=== PATIENT | female | born 1955 | race Caucasian/White ===

== ENCOUNTER → 2022-06-30 08:45 | Outpatient (CLI) | payer MEDICARE, OTHER, SELFPAY | PROVIDERS: PCP Nurse Practitioner Family; Visit Provider Urology | DX: N20.0 Calculus of kidney (principal) | CPT/HCPCS: 87086 ==

== ENCOUNTER → 2022-06-30 09:43 | Outpatient (CLI) | payer MEDICARE, OTHER, SELFPAY ==
--- NOTE | 2022-06-30 09:48 | DI.RAD.S_ITS ---
PROCEDURE: XR KUB INDICATIONS: Right ureteral calculus TECHNIQUE: One view of the abdomen acquired. COMPARISON: [facility], , CT KUB, 06/13/2022, 9:51. FINDINGS: Surgical changes and devices: None. Bowel: Bowel gas pattern is normal. Soft tissues: 12 mm calcification is seen in the right pelvis, which appears to correspond to a distal right ureteral calculus seen on CT from 06/13/2022. Visualized solid organ contours appear normal in size. Bones: Postsurgical changes from posterior fusion at L3 through L5. IMPRESSION: Distal right ureteral calculus does not appear significantly changed when compared to the CT from 06/13/2022. Dictated by: Boris Myrick M.D. on 06/30/2022 at 11:34 Approved by: Boris Myrick M.D. on 06/30/2022 at 11:36
== END ==
PROVIDERS: PCP Nurse Practitioner Family; Referring Provider Urology; Visit Provider Urology
DX: N20.1 Calculus of ureter (principal); R31.29 Other microscopic hematuria
CPT/HCPCS: 74018; 81002; 87077; 87086; 87186; 99214

== ENCOUNTER → 2022-07-01 10:14 | Outpatient (CLI) | payer MEDICARE, OTHER, SELFPAY ==
[2022-07-01 10:51] LABS: COVID19 -Nasal RAPID Negative (Negative)
== END ==
PROVIDERS: PCP Nurse Practitioner Family; Visit Provider Urology
DX: Z20.822 Contact with and (suspected) exposure to COVID-19 (principal)
CPT/HCPCS: 87635; C9803

== ENCOUNTER 2022-07-04 06:33 | Day surgery (SDC) | payer MEDICARE, OTHER, SELFPAY ==
[2022-06-30 11:57] VITALS: BMI 32.3
[2022-07-04] VITALS (7 sets, daily range): BP systolic 102–128; BP diastolic 54–75; PULSE 65–78; RESP 15–17; TEMP 35.9–36.6; O2SAT 95–100; BMI 32.3
--- NOTE | 2022-07-04 | DI.RAD.S_ITS ---
PROCEDURE: XR ABDOMEN 1V INDICATIONS: right stent placement TECHNIQUE: 2 nondiagnostic intraoperative fluoroscopic images of the abdomen. COMPARISON: None. FINDINGS: Nondiagnostic intraoperative fluoroscopic images of the abdomen demonstrate double-J ureteral stent placement with proximal coiled portion projecting over the right renal pelvis and distal coiled portion projecting over the right superior urinary bladder. IMPRESSION: Right double-J ureteral stent placement. Dictated by: Davidson Moser M.D. on 07/04/2022 at 11:30 Approved by: Davidson Moser M.D. on 07/04/2022 at 11:31
--- NOTE | 2022-07-04 07:34 | PM.PREOP ---
Pre-operative Note COVID-19 COVID-19 status: Negative Result date/Date tested (Pos, Neg/Pending): 07/01/22 Criteria for continued procedure: Delay expected to result in less-positive ultimate med/surg outcome and Non-surgical alternatives not available or appropriate per current SOC Interval Note History & Physical reviewed/Exam performed by Physician: Yes Changes to H&P: No
[2022-07-04] MEDS: LACTATED RINGERS 1,000 ML 42 ML IV (07:38)
[2022-07-04] MEDS: CEFAZOLIN 2 GM/100 ML PREMIX 100 ML IV (07:55)
[2022-07-04] MEDS: ACETAMINOPHEN IV 1,000 MG/100 ML VIAL 400 MG IV (08:00)
--- NOTE | 2022-07-04 08:11 | SUR.OPER ---
Lithotomy on padded OR bed, head on pillow, arms secured on padded arm boards at <90 degrees abduction. Legs secured in padded yellow fins stirrups.
[2022-07-04] MEDS: IOPAMIDOL 50 ML VIAL INJ (08:17)
--- NOTE | 2022-07-04 08:35 | PM.OP.1 ---
Procedure & Clinicians Procedure: Cystoscopy right retrograde pyelogram and right ureteral stent placement Same procedure as scheduled: Yes Indications: This is a very pleasant 67-year-old female who presented with complaint of right flank pain was found to have a very large greater than 1.5 cm stone in the distal right ureter. She presents at this time for cystoscopy retrograde and stent placement on the right side. Surgeon: Felipe Kemp Click Yes if Unassisted: Yes Anesthesia Type: General Operative Notes Findings: External genitalia normal urethra and urethral meatus normal. Ureteral orifices in normal position efflux was not observed. Bladder mucosa is normal. Had retrograde pyelogram the stone is noted in the distal 3rd of the ureter. And at retrograde pyelogram moderate ureterectasis is noted as well as hydronephrosis. With passage of the wire a thick purulent appearing material was in evidence as vigorous efflux from the ureteral orifice. A sample of this was collected and will be sent for culture. Note the patient has had no sign or symptom of systemic infectious illness. A 7 [place] by multi length stent was left in good position in the right collecting system without a string. Closure Type: not applicable Specimen(s): other (Aspirated urine for culture) Applied: other (7 [place] by multi length stent right collecting system no string) Estimated Blood Loss (mL): 0 Procedure in detail: Procedure in detail: After informed consent was obtained, the patient was identified, and brought to the operating room. Patient was placed in a supine position on the table and anesthesia was induced and maintained. After ensuring an adequate level of anesthesia the patient was transitioned to the lithotomy position. The patient was then prepped, draped, prepared for Transurethral procedure. After ensuring an adequate level of anesthesia and time-out a 21 [place] cystoscope was passed through the urethra and into the bladder. Cystoscopy was performed. An attempt was made to pass the hybrid wire up past the stone and met with significant resistance. Therefore was backed out [place] catheter was inserted and retrograde pyelogram performed. The [place] catheter was then left in place and a 0.035 glidewire was passed up into the collecting system. The [place] was then passed along the guidewire wire and up into the upper collecting system. The Glidewire was backed out the hybrid wire inserted. Again during this time he vigorous efflux of purulent material was noted from the ureteral orifice. With the hybrid wire in place the stent was passed over the wire in a coaxial fashion and positioned in the renal pelvis under fluoroscopic visualization in the bladder under direct vision. With the stent in good position the wire was removed. The cystoscope was backed out leaving the stent and string in place. It was then reinserted grasping forceps was inserted the stent was grasped with a nylon harness was removed. Fluoroscopic images were taken at the kidney and down the bladder to ensure that the stent remained in good position. The bladder was drained the scope removed the patient was awakened and transferred to the postanesthesia care unit having tolerated the procedure well patient will be discharged to home there were no complications. Complications: none Post-operative Condition: stable Disposition: PACU Plan for aftercare: Patient to follow-up in my office in approximately 7 days with a KUB future plans to be made based on the findings noted that time.
== END 2022-07-04 09:24 | disposition home or self-care (01) ==
PROVIDERS: PCP Nurse Practitioner Family; Referring Provider Urology; Visit Provider Urology
PROC: (CPT 52332; principal; 2022-07-04 07:45)
DX: N20.1 Calculus of ureter (principal); N13.6 Pyonephrosis; B96.89 Other specified bacterial agents as the cause of diseases classified elsewhere
CPT/HCPCS: 52332; 00910; 74018; 76000; 82962; 87077; 87086; 87186; J0131; J0690; J1100; J1885; J2405; J2704

== ENCOUNTER → 2022-07-13 08:07 | Outpatient (CLI) | payer MEDICARE, OTHER, SELFPAY ==
--- NOTE | 2022-07-13 08:08 | DI.RAD.S_ITS ---
PROCEDURE: XR KUB INDICATIONS: right ureteral calculus TECHNIQUE: One view of the abdomen acquired. COMPARISON: [facility], CR, XR KUB, 06/30/2022, 9:54. FINDINGS: Surgical changes and devices: Right-sided ureteral stent is seen. Fixation hardware in lower lumbar spine is also noted. Bowel: Bowel gas pattern is nonobstructive. Mild fecal stasis in the colon is seen. No gross pneumoperitoneum. Soft tissues: 1 x 0.5 cm stone is again seen in right upper pelvis projecting in the region of distal ureter/UVJ unchanged from prior study. Visualized solid organ contours appear normal in size. Bones: No suspicious bony lesions. Postfusion changes at L3 through L5 level is seen. IMPRESSION: Stable appearing right distal ureteral stone. Dictated by: Derrek Porter M.D. on 07/13/2022 at 9:45 Approved by: Derrek Porter M.D. on 07/13/2022 at 9:53
== END ==
PROVIDERS: PCP Nurse Practitioner Family; Referring Provider Urology; Visit Provider Urology
DX: N20.1 Calculus of ureter (principal); R31.29 Other microscopic hematuria; Z96.0 Presence of urogenital implants
CPT/HCPCS: 74018; 99213

== ENCOUNTER → 2022-08-11 07:15 | Outpatient (CLI) | payer MEDICARE, OTHER, SELFPAY ==
--- NOTE | 2022-08-11 07:17 | DI.RAD.S_ITS ---
PROCEDURE: XR KUB INDICATIONS: Right ureteral calculus TECHNIQUE: One view of the abdomen acquired. COMPARISON: [facility], CR, XR ABDOMEN 1V, 07/04/2022, 0:00. [facility], CR, XR KUB, 06/30/2022, 9:54. [facility], RG, CT KUB, 06/13/2022, 9:51. [facility], CR, XR KUB, 07/13/2022, 8:10. FINDINGS: Surgical changes and devices: There is a right ureteral stent.. Bowel: Bowel gas pattern is normal. Soft tissues: There is a 0.6 x 1.1 cm stone in the distal right ureter, unchanged in position. Visualized solid organ contours appear normal in size. Bones: No suspicious bony lesions. Laminectomy and posterior fusion at L3-L5. IMPRESSION: 1. The right distal ureteral stone appears unchanged in position. 2. Right ureteral stent in place. Dictated by: Lakeisha Pino M.D. on 08/11/2022 at 10:04 Approved by: Lakeisha Pino M.D. on 08/11/2022 at 10:07
== END ==
PROVIDERS: PCP Nurse Practitioner Family; Referring Provider Urology; Visit Provider Urology
DX: N20.1 Calculus of ureter (principal); R31.29 Other microscopic hematuria; Z96.0 Presence of urogenital implants; Z20.822 Contact with and (suspected) exposure to COVID-19
CPT/HCPCS: 74018; 81002; 87635; 99214

== ENCOUNTER → 2022-08-11 10:32 | Outpatient (CLI) | payer MEDICARE, OTHER, SELFPAY ==
[2022-08-11 11:07] LABS: COVID19 -Nasal RAPID Negative (Negative)
== END ==
PROVIDERS: PCP Nurse Practitioner Family; Visit Provider Urology
DX: Z20.822 Contact with and (suspected) exposure to COVID-19 (principal)
CPT/HCPCS: 87635

== ENCOUNTER 2022-08-12 07:48 | Day surgery (SDC) | payer MEDICARE, OTHER, SELFPAY ==
[2022-08-11 12:39] VITALS: BMI 32.3
[2022-08-12 08:10] VITALS: BMI 31.4
[2022-08-12 08:14] VITALS: BP 170/91; PULSE 86; RESP 16; TEMP 36.3; O2SAT 100
[2022-08-12] MEDS: LACTATED RINGERS 1,000 ML 21 ML IV (08:25)
--- NOTE | 2022-08-12 08:35 | PM.PREOP ---
Pre-operative Note COVID-19 COVID-19 status: Negative Result date/Date tested (Pos, Neg/Pending): 08/11/22 Criteria for continued procedure: Delay expected to result in less-positive ultimate med/surg outcome and Non-surgical alternatives not available or appropriate per current SOC Interval Note History & Physical reviewed/Exam performed by Physician: Yes Changes to H&P: No
[2022-08-12] MEDS: METOPROLOL ER 50 MG TABLET PO (08:40)
[2022-08-12] MEDS: CEFAZOLIN 2 GM/100 ML PREMIX 100 ML IV (08:46)
--- NOTE | 2022-08-12 09:04 | SUR.OPER ---
Prone on padded OR bed, head in foam head support, gel chest rolls, gel pad under knees, pillow under lower legs, toes free of pressure, arms secured on padded arm boards at <90 degrees abduction. Safety belt at thigh.
--- NOTE | 2022-08-12 09:37 | P.OP_ITS ---
Procedure & Clinicians Procedure: Right extracorporeal shockwave lithotripsy Same procedure as scheduled: Yes Indications: This 67-year-old female presented with complaints of right sided discomfort was found to have a very large distal right ureteral calculus. She subsequently had a right ureteral stent placed in time allowed for the ureter dilate presents this time for right extracorporeal shockwave lithotripsy to start the treatment of this large stone. Patient is aware that it may take multiple treatments to clear this stone. Surgeon: Felipe Kemp Click Yes if Unassisted: Yes Anesthesia Type: General Operative Notes Findings: Large distal right ureteral calculus overlying the margins of the sacrum necess itating a prone positioning for stone treatment right ureteral stent in normal position. The stone received 2500 shocks at level 8 appearing to fragment well. It is impossible to tell at this time whether or not all fragments will clear orifice 2nd treatment will be needed. No other abnormality was noted. Closure Type: not applicable Specimen(s): none sent Estimated Blood Loss (mL): 0 Procedure in detail: Procedure in detail: After informed consent was obtained, patient was identified and brought to the operating room where anesthesia was induced to maintain. Patient was then placed in a supine position on the Lithotripter padded secured and stabilized in the prone position. With an adequate level of anesthesia and after time-out the stone was targeted via the imaging system and shock waves delivered at level 8 for a total of 2500 shocks. Periodic reimaging and re localization to ensure maximal energy delivery to the stone was done. A 2500 shock waves the shockwave head was rotated out a fluoroscopy performed this confirmed significant fragmentation of the stone. At this point the patient was awakened taken to the postanesthesia care unit having tolerated the procedure well. There were no complications patient is to follow-up in my office in approximately 10 days with a KUB. Complications: none Post-operative Condition: stable Disposition: PACU Plan for aftercare: Discharge to home straining her urine save any fragments and bring them to follow-up which will be in approximately 10-14 days.
[2022-08-12 09:48] VITALS: BP 98/60; PULSE 73; RESP 16; TEMP 36.9; O2SAT 99
[2022-08-12 09:53] VITALS: BP 98/60; PULSE 71; RESP 16; O2SAT 99
[2022-08-12 10:03] VITALS: BP 110/70; PULSE 83; RESP 16; TEMP 36.3; O2SAT 100
[2022-08-12] MEDS: ACETAMINOPHEN 325 MG TABLET 650 MG PO (10:17)
[2022-08-12 10:19] VITALS: BP 124/74; PULSE 76; RESP 16; TEMP 36.7; O2SAT 98
[2022-08-12] MEDS: LACTATED RINGERS 1,000 ML 42 ML IV (11:01)
== END 2022-08-12 11:02 | disposition home or self-care (01) ==
PROVIDERS: PCP Nurse Practitioner Family; Referring Provider Urology; Visit Provider Urology
PROC: (CPT 50590; principal; 2022-08-12 09:15)
DX: N20.1 Calculus of ureter (principal); R31.29 Other microscopic hematuria; Z96.0 Presence of urogenital implants
CPT/HCPCS: 50590; 82962; J0690; J1100; J1885; J2250; J2405; J2704; J3010

== ENCOUNTER → 2022-08-24 08:01 | Outpatient (CLI) | payer MEDICARE, OTHER, SELFPAY ==
--- NOTE | 2022-08-24 08:03 | DI.RAD.S_ITS ---
PROCEDURE: XR KUB INDICATIONS: kidney and ureteral stones TECHNIQUE: One view of the abdomen acquired. COMPARISON: [facility], RG, CT KUB, 06/13/2022, 9:51. [facility], CR, XR KUB, 08/11/2022, 7:20. [facility], CR, XR KUB, 07/13/2022, 8:10. FINDINGS: Right ureteral stent redemonstrated appears similar in position to before. The stone previously visualized adjacent to the distal aspect of the stent is no longer visualized. Nonobstructive bowel gas pattern. Lumbar spine fusion changes present as before. IMPRESSION: Right ureteral stent redemonstrated and appears similar in position to before. The stone previously visualized adjacent to the distal aspect of the stent is no longer visualized. Dictated by: Boris Martinez M.D. on 08/24/2022 at 11:51 Approved by: Boris Martinez M.D. on 08/24/2022 at 11:56
== END ==
PROVIDERS: PCP Nurse Practitioner Family; Referring Provider Urology; Visit Provider Urology
DX: N20.2 Calculus of kidney with calculus of ureter (principal); Z96.0 Presence of urogenital implants
CPT/HCPCS: 74018; 82365

== ENCOUNTER → 2022-08-24 15:27 | Outpatient (CLI) | payer MEDICARE, OTHER, SELFPAY ==
[2022-08-29 10:36] LABS: Ca oxalate monohydr 60 % (.); Hydroxyapatite 40 % (.); Size 3x2 mm (.)
== END ==
PROVIDERS: PCP Nurse Practitioner Family; Visit Provider Urology
DX: N20.0 Calculus of kidney (principal)
CPT/HCPCS: 82365

== ENCOUNTER → 2022-09-08 07:01 | Outpatient (CLI) | payer MEDICARE, OTHER, SELFPAY ==
--- NOTE | 2022-09-08 07:02 | DI.RAD.S_ITS ---
PROCEDURE: XR KUB INDICATIONS: Kidney stones TECHNIQUE: One view of the abdomen acquired. COMPARISON: [facility], CR, XR KUB, 08/24/2022, 8:12. FINDINGS: Surgical changes and devices: Again noted is a right-sided ureteral stent in stable position. There is prior postsurgical change involving the lumbar spine. Bowel: There is some increased stool throughout the patient's colon with an otherwise non-specific bowel gas pattern. Soft tissues: No suspicious abdominal calcifications. Visualized solid organ contours appear normal in size. Bones: No suspicious bony lesions. IMPRESSION: 1. Stable appearance of right-sided ureteral stent. 2. Increased stool noted throughout the patient's colon. 3. Prior postsurgical changes lumbar spine. Dictated by: Ren Brown M.D. on 09/08/2022 at 9:25 Approved by: Ren Brown M.D. on 09/08/2022 at 9:27
[2022-09-14 11:46] LABS: Ca oxalate monohydr 70 % (.); Hydroxyapatite 30 % (.); Size 5x4 mm (.)
== END ==
PROVIDERS: PCP Nurse Practitioner Family; Referring Provider Urology; Visit Provider Urology
DX: N20.1 Calculus of ureter (principal); R31.29 Other microscopic hematuria; Z96.0 Presence of urogenital implants
CPT/HCPCS: 74018; 81002; 82365

== ENCOUNTER → 2022-09-15 10:02 | Outpatient (CLI) | payer MEDICARE, OTHER, SELFPAY | PROVIDERS: PCP Nurse Practitioner Family; Visit Provider Urology | DX: N20.2 Calculus of kidney with calculus of ureter (principal); R31.29 Other microscopic hematuria | CPT/HCPCS: 52310; 81002; 87086 ==

== ENCOUNTER → 2022-10-05 09:24 | Outpatient (CLI) | payer MEDICARE, OTHER, SELFPAY ==
[2022-10-05 12:09] LABS: Calcium 9.8 mg/dL (8.4-10.2); Phosphorous 4.4 mg/dL (2.8-4.1); Uric Acid 5.9 mg/dL (2.5-6.2)
[2022-10-06 10:05] LABS: Parathyroid Hormone Int 30 pg/mL (15-65)
== END ==
PROVIDERS: PCP Nurse Practitioner Family; Referring Provider Urology; Visit Provider Urology
DX: N20.2 Calculus of kidney with calculus of ureter (principal); R31.29 Other microscopic hematuria
CPT/HCPCS: 36415; 81002; 82310; 83970; 84100; 84550

== ENCOUNTER → 2022-11-01 08:25 | Outpatient (CLI) | payer MEDICARE, OTHER, SELFPAY ==
[2022-11-01 08:53] LABS: Phosphorous 4.4 mg/dL (2.8-4.1)
== END ==
PROVIDERS: PCP Nurse Practitioner Family; Referring Provider Urology; Visit Provider Urology
DX: N20.0 Calculus of kidney (principal); R79.89 Other specified abnormal findings of blood chemistry
CPT/HCPCS: 36415; 84100; 99213

== ENCOUNTER → 2022-12-21 08:18 | Outpatient (CLI) | payer MEDICARE, OTHER, SELFPAY ==
[2022-12-21 10:51] LABS: BUN Creatinine Ratio 24.1 (6-22); Blood Urea Nitrogen 21 mg/dL (7-17); Calcium 9.1 mg/dL (8.4-10.2); Carbon Dioxide 28 mmol/L (22-32); Chloride 106 mmol/L (98-107); Estimated Glomerular Filt Rate > 60 mL/min (>60); Glucose 83 mg/dL (80-110); HEMOLYSIS < 15 (0-50); Phosphorous 3.8 mg/dL (2.8-4.1); Potassium 4.5 mmol/L (3.4-5.1); Sodium 142 mmol/L (137-145)
== END ==
PROVIDERS: PCP Nurse Practitioner Family; Referring Provider Urology; Visit Provider Urology
DX: N20.0 Calculus of kidney (principal); R82.991 Hypocitraturia; E83.39 Other disorders of phosphorus metabolism
CPT/HCPCS: 36415; 80048; 84100; 99213

== ENCOUNTER → 2023-09-07 08:16 | Outpatient (CLI) | payer MEDICARE, OTHER, SELFPAY ==
--- NOTE | 2023-09-07 08:17 | DI.RAD.S_ITS ---
PROCEDURE: XR KUB INDICATIONS: History of kidney stones TECHNIQUE: One view of the abdomen acquired. COMPARISON: [facility], CR, XR KUB, 09/08/2022, 8:27. [facility], CR, XR KUB, 08/24/2022, 8:12. FINDINGS: Surgical changes and devices: Lumbar spine fusion.. Bowel: Bowel gas pattern is normal. Soft tissues: Possible faint calcifications projecting over the right renal shadow measuring up to 4 mm.. Visualized solid organ contours appear normal in size. Bones: No suspicious bony lesions. IMPRESSION: Possible faint calcifications projecting over the right renal shadow measuring up to 4 mm. Interval removal of right ureteral stent. Dictated by: Steve Noyola M.D. on 09/07/2023 at 13:55 Approved by: Steve Noyola M.D. on 09/07/2023 at 13:56
== END ==
PROVIDERS: PCP Nurse Practitioner Family; Referring Provider Urology; Visit Provider Urology
DX: R82.991 Hypocitraturia (principal); N20.0 Calculus of kidney; Z87.442 Personal history of urinary calculi
CPT/HCPCS: 74018; 99213

== ENCOUNTER → 2024-03-13 09:10 | Outpatient (CLI) | payer MEDICARE, OTHER, SELFPAY | PROVIDERS: PCP Nurse Practitioner Family; Visit Provider Urology | DX: N20.0 Calculus of kidney (principal); R31.29 Other microscopic hematuria; R82.991 Hypocitraturia; R34 Anuria and oliguria; R82.81 Pyuria; R39.9 Unspecified symptoms and signs involving the genitourinary system | CPT/HCPCS: 81002; 87086; 99214 ==

== ENCOUNTER → 2025-03-24 12:17 | Outpatient (CLI) | payer MEDICARE, OTHER, SELFPAY | PROVIDERS: PCP Nurse Practitioner Family; Visit Provider Urology | DX: R39.9 Unspecified symptoms and signs involving the genitourinary system (principal) | CPT/HCPCS: 87077; 87086; 87186 ==